=== PATIENT | female | born 1955 | race Caucasian/White ===

== ENCOUNTER → 2016-07-29 | Outpatient (CLI) | payer OTHER ==
--- NOTE | 2016-07-29 16:38 | MA ---
Screening Digital Mammogram With iCAD Analysis Clinical Indications: Routine screening. Technique: Standard cephalocaudal and mediolateral oblique projections are obtained. This examination is processed by the iCAD computer aided detection system. Comparison: July 2015, June 2014, June 2013, June 2012, June 2011, June 2010, June 2009, May 2008. Breast density: Type B; Scattered fibroglandular densities. Findings: CAD was reviewed. No masses, suspicious calcifications or other signs of malignancy are see n. There has been no significant change in the appearance of either breast. Impression: Negative mammogram. BI-RADS 1. Recommendation: Routine mammographic screening in one year as long as physical examination is negativ [facility]. Negative mammography should not preclude additional workup of a clinically suspicious finding. The patient's information is entered into a reminder system with a target due date for her next mammo gram.
--- NOTE | 2016-07-29 19:51 | DX ---
DEXA Bone Mineral Densitometry Clinical Indications: Hyperparathyroidism. Comparison: February 08, 2009. Technique: Bone Mineral Densitometry (BMD) by Dual Energy X-Ray Absorptiometry (DEXA) was performed utilizing the Match scanner. The lumbar spine was evaluated in the AP projection. The bilat eral hips and forearm were evaluated in the AP projection. Vertebral fracture assessment was also pe rformed. Findings: AP Lumbar Spine: The L1, L2, L3 and L4 vertebral bodies were evaluated. BMD: 1.53 gm/cm2 T-score: 2.7 SD Z-score: 3.3 SD 2% increase compared to prior examination. AP Left Hip: BMD: 0.97 gm/cm2 T-score: -0.3 SD Z-score: 0.2 SD 8.8% decrease from prior examination. AP Right Hip: BMD: 0.93 gm/cm2 T-score: -0.6 SD Z-score: -0.1 SD 8% decrease from prior examination. AP Left Forearm, 07/22: BMD: 0.89 gm/cm2 T-score: 0.2 SD Z-score: 1.4 SD 5.2% decrease from prior examination. Vertebral Fracture Assessment: No significant fracture deformity. Conclusion: Considering the lowest measured site, the patient has a normal bone mineral density. Th e ten year FRAX risk for any major osteoporotic fracture, which excludes the risk for a wrist fractur e is 14.8% and for a hip fracture is 0.6%. Recommendations: To prevent osteoporosis and promote the patient's bone density the following recomme ndations should be considered: 1. Pursue a regular regimen of weight-bearing and muscle-strengthening exercises in order to reduce t he risk for falls in fractures. 2. Ensure the total daily calcium uptake is 1500 mg. 3. Ensure that intake of vitamin D is 400 to 800 international units. 4. Consider follow-up DEXA scan in 2 years to evaluate rate of bone loss.
== END ==
LOC: BRMIMAGING 09:32
PROVIDERS: ATTEND Nurse Practitioner
DX: Z12.31 Encounter for screening mammogram for malignant neoplasm of breast (principal); Z13.820 Encounter for screening for osteoporosis; E21.3 Hyperparathyroidism, unspecified
CPT/HCPCS: G0202

== ENCOUNTER → 2017-08-04 | Outpatient (CLI) | payer OTHER | LOC: BRMIMAGING 13:39 | PROVIDERS: ATTEND Nurse Practitioner | DX: Z12.31 Encounter for screening mammogram for malignant neoplasm of breast (principal) ==

== ENCOUNTER → 2018-08-09 | Outpatient (CLI) | payer OTHER | LOC: BRMIMAGING 12:48 | PROVIDERS: ATTEND Nurse Practitioner | DX: Z12.31 Encounter for screening mammogram for malignant neoplasm of breast (principal) ==